=== PATIENT | female | born 1980 | race Caucasian/White ===

== ENCOUNTER 2017-06-10 19:57 | Inpatient (IN) | payer MEDICAID ==
[~2017-06-10] VITALS: Ht 175.3 cm; Wt 86.8 kg
[2017-06-10] VITALS (7 sets, daily range): BP systolic 113–148; BP diastolic 66–81; PULSE 67–78; TEMP 98.2
[2017-06-10 21:37] LABS: BASO # 0.1 (0.0-0.2); BASO % 0.4 % (0.0-2.0); EOS # 0.1 (0.0-0.7); EOS % 0.5 % (0-4.0); GRAN # 14.5 (1.4-6.5); GRAN % 85.7 % (42.2-75.2); HEMOGLOBIN 12.3 g/dl (12.5-16.0); LYMPH # 1.2 (1.2-3.4); LYMPH % 6.9 % (20.0-51.0); MEAN CELL VOLUME 93 fl (80.0-100.0); MEAN CORPUSCULAR HEMOGLOBIN 32 pg (27.0-31.0); MEAN CORPUSCULAR HGB CONC 34 g/dl (33.0-37.0); MEAN PLATELET VOLUME 10.9 fl (7.4-10.4); MONO % 5.8 % (1.7-9.3); PLATELET COUNT 158 K/mm3 (130-400); RED BLOOD COUNT 3.89 M/mm3 (4.10-5.30); REDCELL DISTRIBUTION WIDTH-CV 14.4 % (11.5-14.5); WHITE BLOOD COUNT 16.9 K/mm3 (4.8-10.8)
[2017-06-10] MEDS ORDERED: PRENATAL1 TA7 PO (21:37)
[2017-06-11 02:45] VITALS: BP 112/68; PULSE 72; TEMP 98.7
[2017-06-11 07:51] VITALS: BP 116/80; PULSE 78; TEMP 97.7
[2017-06-11 12:07] VITALS: BP 115/69; PULSE 85; TEMP 98.4
[2017-06-11 16:23] VITALS: BP 116/78; PULSE 77; TEMP 98.5
[2017-06-11 19:15] VITALS: BP 121/72; PULSE 87; TEMP 98.6
== END 2017-06-11 22:00 | disposition home or self-care (01) | DRG 775 ==
LOC: LDRO 19:57 → OB 20:33 → LDR 20:33 → OB 22:30
PROVIDERS: Obstetrics & Gynecology
PROC: 10E0XZZ Delivery of Products of Conception, External Approach (ICD-10-PCS; principal; 2017-06-10)
DX: O62.3 Precipitate labor (principal); O36.0130 Maternal care for anti-D [Rh] antibodies, third trimester, not applicable or unspecified; O48.0 Post-term pregnancy; O70.0 First degree perineal laceration during delivery; Z3A.41 41 weeks gestation of pregnancy; Z37.0 Single live birth
CPT/HCPCS: J2791

== ENCOUNTER → 2018-12-18 | Outpatient (CLI) | payer BC ==
[~2018-12-18] MED LIST: PRENATAL1 TA7 PO
== END ==
LOC: COL.RAD 07:30
DX: E04.1 Nontoxic single thyroid nodule (principal)

== ENCOUNTER → 2019-01-02 | Outpatient (CLI) | payer BC ==
[~2019-01-02] VITALS: Ht 175.3 cm; Wt 79.2 kg
[2019-01-02 12:43] VITALS: BP 129/89; PULSE 66
[2019-01-02 13:35] VITALS: BP 130/87; PULSE 70
== END ==
LOC: COL.RAD 12:34
DX: E04.1 Nontoxic single thyroid nodule (principal)